=== PATIENT | male | born 1980 | race Caucasian/White ===

== ENCOUNTER 2017-05-22 16:08 | Emergency (ER) | payer OTHER ==
[~2017-05-22] VITALS: Ht 167.6 cm; Wt 81.6 kg
[~2017-05-22 16:08] MED LIST: ANAPROX DS550 M1 PO; FIORICET 50-301 EACH PO; IBUPROFEN200 M1 PO; METHADONE10 MG PO; NAPROSYN500 MG PO; PEN-VEE K,VEET500 MG PO; SILVADENE20 GM TP; VICODIN 5-3001 EACH PO; ZOFRAN ODT4 MG PO
[2017-05-22 18:00] VITALS: BP 114/66
== END 2017-05-22 19:28 | disposition home or self-care (01) ==
LOC: EME 16:08
DX: S00.03XA Contusion of scalp, initial encounter (principal); S60.416A Abrasion of right little finger, initial encounter; S50.311A Abrasion of right elbow, initial encounter; S20.222A Contusion of left back wall of thorax, initial encounter; S60.022A Contusion of left index finger without damage to nail, initial encounter; K02.9 Dental caries, unspecified; F41.8 Other specified anxiety disorders; Y00.XXXA Assault by blunt object, initial encounter
CPT/HCPCS: 70450; 70486; 71101; 73090; 73560; 73564; 99281; 99284

== ENCOUNTER 2017-05-24 12:55 | Emergency (ER) | payer OTHER ==
[~2017-05-24] VITALS: Ht 167.6 cm; Wt 80.4 kg
[2017-05-24] MEDS ORDERED: NAPROSYN500 MG PO (13:59)
[2017-05-24 14:39] VITALS: BP 112/60
== END 2017-05-24 14:43 | disposition home or self-care (01) ==
LOC: EME 12:55
DX: M25.461 Effusion, right knee (principal); S83.91XD Sprain of unspecified site of right knee, subsequent encounter; W19.XXXD Unspecified fall, subsequent encounter; Z72.0 Tobacco use
CPT/HCPCS: 99281; 99284